=== PATIENT | female | born 1960 ===

== ENCOUNTER 2018-10-16 15:42 | Outpatient (CLI) | payer MEDICAID | END 2018-10-16 15:43 | disposition home or self-care (01) | LOC: C.MAMMO 15:42 | DX: Z12.31 Encounter for screening mammogram for malignant neoplasm of breast (principal) ==

== ENCOUNTER 2018-12-05 18:36 | Emergency (ER) | payer MEDICAID ==
[2018-12-05 18:42] VITALS: BP 129/83; PULSE 65; TEMP 97.5; O2SAT 100
[2018-12-05 19:46] LABS: SQUAMOUS EPITHIAL 1 /hpf (0-5); URINE BILIRUBIN NEGATIVE (NEGATIVE); URINE BLOOD NEGATIVE (NEGATIVE); URINE CLARITY Clear (Clear); URINE COLOR Straw (YELLOW); URINE GLUCOSE (UA) NORMAL (Normal); URINE LEUKOCYTE ESTERASE NEG Leu/uL (Negative); URINE PROTEIN NEGATIVE (NEGATIVE); URINE UROBILINOGEN NORMAL mg/dL (0.2-1.0)
--- NOTE | 2018-12-05 20:11 | C.PDOC ---
History Of Present Illness 58 y/o female,w/PMhx of sciatica, presents to the ER complaining of left sided flank pain and dysuria which began in the morning. Patient states the pain is limited to the left flank ad she rates the pain 6/10. Patient reports that the current pain is different from her history of sciatica.She notes that she took Gabapentin without relief. She reports previous history of UTI and believes she has developed another one. Denies having fever,chills,nausea, incontinence, vomiting, and diarrhea. Time Seen by Provider: 12/05/18 19:15 Chief Complaint (Nursing): Back Pain History Per: Patient History/Exam Limitations: no limitations Onset/Duration Of Symptoms: Days Current Symptoms Are (Timing): Still Present Severity: Moderate Past Medical History Reviewed: Historical Data, Nursing Documentation, Vital Signs Vital Signs: Last Vital Signs Temp 97.5 F L 12/05/18 18:38 Pulse 65 12/05/18 18:38 Resp 18 12/05/18 18:38 BP 129/83 12/05/18 18:38 Pulse Ox 100 12/05/18 18:38 - Medical History PMH: Arthritis, Back Problems (Sciatica), Diabetes, HTN, Hypothyroidism Surgical History: No Surg Hx Family History: States: No Known Family Hx - Social History Hx Tobacco Use: No Hx Alcohol Use: No Hx Substance Use: No - Immunization History Hx Tetanus Toxoid Vaccination: No Hx Influenza Vaccination: No Hx Pneumococcal Vaccination: No Review Of Systems Except As Marked, All Systems Reviewed And Found Negative. Constitutional: Negative for: Fever, Chills Gastrointestinal: Negative for: Nausea, Vomiting, Diarrhea Genitourinary: Negative for: Dysuria, Hematuria Musculoskeletal: Positive for: Other (left flank pain) Physical Exam - Physical Exam Appears: Non-toxic, No Acute Distress Skin: Normal Color, Warm, Dry Head: Atraumatic, Normacephalic Eye(s): bilateral: Normal Inspection Nose: Normal Oral Mucosa: Moist Neck: Supple Chest: Symmetrical Cardiovascular: Rhythm Regular Respiratory: Normal Breath Sounds, No Rales, No Rhonchi, No Wheezing Gastrointestinal/Abdominal: Normal Exam, Soft, No Tenderness, No Guarding, No Rebound Rectal: Other (normal rectal tone) Neurological/Psych: Oriented x3, Normal Speech ED Course And Treatment - Laboratory Results Lab Results: Urine Color Straw (YELLOW) 12/05/18 19:37 Urine Clarity Clear (Clear) 12/05/18 19:37 Urine pH 7.0 (5.0-8.0) 12/05/18 19:37 Ur Specific [place] 1.002 (1.003-1.030) L 12/05/18 19:37 Urine Protein Negative mg/dL (NEGATIVE) 12/05/18 19:37 Urine Glucose (UA) Normal mg/dL (Normal) 12/05/18 19:37 Urine Ketones Negative mg/dL (NEGATIVE) 12/05/18 19:37 Urine Blood Negative (NEGATIVE) 12/05/18 19:37 Urine Nitrate Negative (NEGATIVE) 12/05/18 19:37 Urine Bilirubin Negative (NEGATIVE) 12/05/18 19:37 Urine Urobilinogen Normal mg/dL (0.2-1.0) 12/05/18 19:37 Ur Leukocyte Esterase Neg Gregg/uL (Negative) 12/05/18 19:37 Urine WBC (Auto) 1 /hpf (0-5) 12/05/18 19:37 Ur Squamous Epith Cells 1 /hpf (0-5) 12/05/18 19:37 O2 Sat by Pulse Oximetry: 100 (RA) Pulse Ox Interpretation: Normal Medical Decision Making Medical Decision Making: Plan: UA Reviewed and discussed with patient --treat prophylactically with Macrobid PO and Pyridium PO Disposition Counseled Patient/Family Regarding: Diagnosis, Need For Followup, Rx Given - Disposition Referrals: Connie Jefferson [Staff Provider] - Disposition: HOME/ ROUTINE Disposition Time: 20:19 Condition: STABLE Additional Instructions: continue Macrobid and Pyridium as instructed Rest and Hydration Follow up with PM Din 1-2 days Return to the ED if symptoms worsen Prescriptions: Nitrofurantoin Macrocrystals [Macrobid] 100 mg PO BID #10 cap Phenazopyridine [Pyridium] 200 mg PO TID #6 tab Instructions: Urinary Tract Infection, Adult (DC) Forms: [facility] (Malian) - Clinical Impression Clinical Impression: Dysuria - PA / [employer] / Resident Statement MD/DO has reviewed & agrees with the documentation as recorded. - Scribe Statement The provider has reviewed the documentation as recorded by the Xiomara Ortega Provider Attestation All medical record entries made by the Scribe were at my direction and personally dictated by me. I have reviewed the chart and agree that the record accurately reflects my personal performance of the history, physical exam, medical decision making, and the department course for this patient. I have also personally directed, reviewed, and agree with the discharge instructions and disposition.
[2018-12-05 20:33] VITALS: RESP 20
== END 2018-12-05 20:32 | disposition home or self-care (01) ==
LOC: C.ER 18:36
DX: R30.0 Dysuria (principal)

== ENCOUNTER 2019-01-06 18:17 | Emergency (ER) | payer MEDICAID ==
[2019-01-06 18:25] VITALS: BP 122/78; PULSE 87; RESP 17; TEMP 98.4; O2SAT 100
--- NOTE | 2019-01-06 18:59 | C.PDOC ---
History Of Present Illness 58 y/o female pt with hx of HTN and DM presents to the ER c/o sore throat, nonproductive cough, chest congestion, and bodyaches for x5 days. Pt reports she went to the PMD who prescribed her cough medication, Tessalon perles, and Azelastine nasal spray. Pt notes it provided minor relief, but she is still "not feeling usual self" and feels weak.. Pt denies fever, chills, nausea, vomiting, diarrhea, constipation, abdominal pain, headache, dizziness, chest pain, SOB, recent travel or sick contacts. Time Seen by Provider: 01/06/19 18:37 Chief Complaint (Nursing): Flu-like Symptoms History Per: Patient History/Exam Limitations: no limitations Onset/Duration Of Symptoms: Days (x5) Current Symptoms Are (Timing): Still Present Past Medical History Reviewed: Historical Data, Nursing Documentation, Vital Signs Vital Signs: Last Vital Signs Temp 98.4 F 01/06/19 18:20 Pulse 87 01/06/19 18:20 Resp 17 01/06/19 18:20 BP 122/78 01/06/19 18:20 Pulse Ox 100 01/06/19 18:20 Primary Care Provider: Zelda Prabhakar - Medical History PMH: Arthritis, Back Problems (Sciatica), Diabetes, HTN, Hypothyroidism Family History: States: No Known Family Hx - Social History Hx Tobacco Use: No Hx Alcohol Use: No Hx Substance Use: No - Immunization History Hx Tetanus Toxoid Vaccination: Yes Hx Influenza Vaccination: Yes Hx Pneumococcal Vaccination: No Review Of Systems Except As Marked, All Systems Reviewed And Found Negative. Constitutional: Negative for: Fever, Chills, Other (sick contact ) ENT: Positive for: Throat Pain Cardiovascular: Positive for: Other (chest congestion ). Negative for: Chest Pain Respiratory: Positive for: Cough (non-productive ) Gastrointestinal: Negative for: Nausea, Vomiting Musculoskeletal: Positive for: Other (body aches ) Neurological: Negative for: Dizziness Physical Exam - Physical Exam Appears: Well, Non-toxic, No Acute Distress Skin: Normal Color, Warm, Dry Head: Atraumatic, Normacephalic Eye(s): bilateral: Normal Inspection, EOMI Ear(s): Bilateral: Normal Nose: Normal Oral Mucosa: Moist Throat: Normal, No Erythema, No Exudate, Other (uvula midline) Neck: Normal ROM, Supple Lymphatic: No Adenopathy Chest: Symmetrical Cardiovascular: Rhythm Regular Respiratory: Normal Breath Sounds Gastrointestinal/Abdominal: Normal Exam, Soft, No Tenderness Back: Normal Inspection, No CVA Tenderness, No Vertebral Tenderness Extremity: Normal ROM, No Pedal Edema Neurological/Psych: Oriented x3, Normal Speech ED Course And Treatment O2 Sat by Pulse Oximetry: 100 (RA) Pulse Ox Interpretation: Normal - Radiology CXR: Interpreted by Me, Viewed By Me CXR Interpretation: Yes: No Acute Disease Medical Decision Making Medical Decision Making: Plans: -- influenza A B stat -- rapid strep -- CXR 01/06/191940 Flu and strep negative. CXR no acute disease. 100% on RA. Afebrile. 58yo female, well appearing with complaint of cough, bodyaches and sore throat for 4 days. Afebrile, vitals wnl, nontoxic. Evaluated by PMD at onset of symptoms and given tessalon perles and azelastine which she has been taking with relief of her symptoms. Advised symptoms may be viral in nature. Will continue previously prescribed medications in addition to tylenol or advil for pain. Will write rx for antibiotic as well but encouraged to hold unless symptoms persist, develops worsening symptoms or fever. States she had a follow-up appointment with her doctor on Tuesday01/08/19 as well. Disposition Counseled Patient/Family Regarding: Studies Performed, Diagnosis, Need For Followup, Rx Given - Disposition Referrals: Zelda Prabhakar MD [Medical Doctor] - Disposition: HOME/ ROUTINE Disposition Time: 19:49 Condition: GOOD Additional Instructions: Follow-up with your PMD. Return if symptoms worsen or persist. Continue medications previously prescribed to you by your doctor. You can take tylenol or advil for any aches or pains. 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 - Scribe Statement The provider has reviewed the documentation as recorded by the Scribe [place] All medical record entries made by the Xiomara were at my direction and personally dictated by me. I have reviewed the chart and agree that the record accurately reflects my personal performance of the history, physical exam, medical decision making, and the department course for this patient. I have also personally directed, reviewed, and agree with the discharge instructions and disposition.
[2019-01-06 19:38] LABS: INFLUENZA A B NEGATIVE FOR FLU A/B (NEGATIVE)
--- NOTE | 2019-01-07 08:40 | RAD ---
HISTORY: cough COMPARISON: Chest x-ray performed 05/11/16 TECHNIQUE: Chest PA and lateral, 2 views FINDINGS: Examination limited by habitus. LUNGS: Patchy left lower lobe opacities consistent with pneumonia. Please note that chest x-ray has limited sensitivity for the detection of pulmonary masses. PLEURA: No significant pleural effusion identified. No definite pneumothorax . CARDIOVASCULAR: Borderline cardiomegaly. Ectatic aorta. OSSEOUS STRUCTURES: No acute osseous abnormality identified. VISUALIZED UPPER ABDOMEN: Unremarkable. OTHER FINDINGS: None. IMPRESSION: Patchy left lower lobe opacities consistent with pneumonia. Study marked for PA review.
== END 2019-01-06 19:57 | disposition home or self-care (01) ==
LOC: C.ER 18:17
DX: J11.1 Influenza due to unidentified influenza virus with other respiratory manifestations (principal)